=== PATIENT | female | born 1980 | race Hispanic/Latino ===

== ENCOUNTER 2017-03-22 20:04 | Emergency (ER) | payer MEDICAID ==
[2017-03-22 20:15] VITALS: BP 152/78; PULSE 78; TEMP 98.7; O2SAT 99
[2017-03-22] MEDS ORDERED: Promethazine/Cod 6.25mg-10mg/5ml Syr UD PO STA (20:42)
[2017-03-22] MEDS ORDERED: Promethazine 6.25 MG/5 ML CUP ONE (20:49)
--- NOTE | 2017-03-22 21:01 | ED PDOC ---
HPI: CCC, URI, Sore Throat Time Seen by Provider: 03/22/17 20:19 Chief Complaint (Nursing): Shortness Of Breath Chief Complaint (Provider): cough History Per: Patient History/Exam Limitations: no limitations Onset/Duration Of Symptoms: Days (4), Gradual, Persistent Current Symptoms Are (Timing): Still Present Location Of Pain: None Associated Symptoms: Cough, Sputum, Other (loss of voice). denies: Fever, Chills, Sore Throat, Sinus Drainage, Nasal Congestion Past Medical History Reviewed: Historical Data, Nursing Documentation, Vital Signs Vital Signs: Last Vital Signs Temp 98.7 F 03/22/17 20:07 Pulse 78 03/22/17 20:07 Resp 8 L 03/22/17 21:17 BP 152/78 H 03/22/17 20:07 Pulse Ox 99 03/22/17 21:06 - Medical History PMH: Asthma, Pulmonary Embolism (04/10) Denies: Arthritis, Fractures, HIV, Osteoporosis, Chronic Kidney Disease, Rheumatoid Arthritis - Surgical History Surgical History: No Surg Hx - Family History Family History: States: CAD, Diabetes - Social History Current smoker - smoking cessation education provided: No - Home Medications Home Medications: Ambulatory Orders Medication Instructions Recorded Albuterol HFA [Ventolin HFA 90 2 puff IH BID PRN 04/22/14 mcg/actuation (8 g)] Salmeterol Xinafoate/Fluticaso 2 puff IH Q12 #0 inhaler 04/28/14 [Advair Hfa 115/21] Sulfamethoxazole/Trimethopri 1 tab PO BID #14 tab 04/28/14 [Bactrim Ds 800 mg-160 mg] Warfarin Sodium [Coumadin] 5 mg PO HS #3 tab 04/28/14 predniSONE [predniSONE Tab] 40 mg PO DAILY #5 tab 04/28/14 Codeine Phosphate/Promethazi 5 ml PO Q6 PRN #125 ml 10/04/14 [Promethazine with Codeine 10 mg/5 ml-6.25 mg/] Moxifloxacin Hydrochloride [Avelox] 400 mg PO DAILY #5 tab 10/04/14 Albuterol Sulfate [Albuterol Hfa] 0.09 mg IH Q4 PRN #1 ml 08/31/15 Albuterol Sulfate [Albuterol 3 ml IH Q4 PRN #25 robert 08/31/15 Sulfate 2.5mg/3 ml 0.083%] Prednisone 50 mg PO DAILY #4 tab 08/31/15 Albuterol HFA [Ventolin HFA 90 2 puff INH PRN PRN 06/04/16 mcg/actuation (8 g)] Aspirin [Ecotrin] 81 mg PO DAILY 06/04/16 Loratadine [Claritin] 10 mg PO DAILY 06/04/16 Montelukast Sodium [Singulair] 10 mg PO HS 06/04/16 Salmeterol Xinafoate/Fluticaso 2 puff INH BID 06/04/16 [Advair Hfa 230-21] Theophylline [Gautam-Dur] 200 mg PO DAILY 06/04/16 methylPREDNISolone [Medrol] 4 mg PO TID 06/04/16 predniSONE [predniSONE Tab] 20 mg PO BID #8 tab 06/04/16 Prednisone 50 mg PO DAILY #4 tablet 03/22/17 Promethazine HCl/Codeine 10 ml PO Q6 PRN #120 ml 03/22/17 [Prometh-Codein 6.25-10 mg/5 ml] levoFLOXacin [Levaquin] 750 mg PO DAILY #5 tab 03/22/17 - Allergies Allergies/Adverse Reactions: Allergies Allergy/AdvReac Type Severity Reaction Status Date / Time azithromycin [From Zithromax] Allergy RASH Verified 06/04/16 18:27 clindamycin Allergy RASH Verified 06/04/16 18:27 Penicillins Allergy RASH Verified 06/04/16 18:27 Review of Systems ROS Statement: Except As Marked, All Systems Reviewed And Found Negative (and as per HPI) Constitutional: Negative for: Fever, Chills ENT: Positive for: Other (loss of voice). Negative for: Nose Discharge, Throat Pain Cardiovascular: Negative for: Light Headedness Respiratory: Positive for: Cough, Shortness of Breath, Pleuritic Pain, Sputum, Wheezing (but resolved with albuterol) Physical Exam - Reviewed Nursing Documentation Reviewed: Yes Vital Signs Reviewed: Yes - Physical Exam Appears: Positive for: Non-toxic, In Acute Distress (coughing episodes) Head Exam: Positive for: ATRAUMATIC, NORMOCEPHALIC Skin: Positive for: Warm, Dry Eye Exam: Positive for: EOMI, PERRL ENT: Positive for: Other (poor voice projection). Negative for: Pharyngeal Erythema, Tonsillar Exudate, Tonsillar Swelling Neck: Positive for: Painless ROM, Supple Cardiovascular/Chest: Positive for: Regular Rate, Rhythm, Chest Non Tender. Negative for: Edema, Murmur Respiratory: Positive for: Normal Breath Sounds. Negative for: Accessory Muscle Use, Rales, Rhonchi, Wheezing, Respiratory Distress Gastrointestinal/Abdominal: Positive for: Soft. Negative for: Tenderness Back: Positive for: Normal Inspection. Negative for: Decreased ROM Extremity: Positive for: Normal ROM. Negative for: Pedal Edema, Calf Tenderness Lymphatic: Negative for: Adenopathy Neurologic/Psych: Positive for: Alert. Negative for: Motor/Sensory Deficits - Laboratory Results Result Diagrams: 03/22/17 21:14 03/22/17 21:14 Interpretation Of Abn Labs: Leukocytosis, likely from recent infection. No emergently significant lab abnormalities. - ECG ECG: Positive for: Interpreted By Wy ECG Rhythm: Positive for: Normal QRS, Normal ST Segment, Sinus Rhythm O2 Sat by Pulse Oximetry: 99 Pulse Ox Interpretation: Normal - Radiology X-Ray: Interpreted by Wy X-Ray Interpretation: No Acute Disease - Progress Re-evaluation Time: 22:17 Condition: Improved (Pt will be given rx for steroid, levaquin (pt not taking coumadin so no interaction concerning) and promethazine w codeine.) Disposition - Clinical Impression Clinical Impression: Laryngitis Counseled Patient/Family Regarding: Studies Performed, Diagnosis, Need For Followup, Rx Given - Disposition Referrals: Lavell Killian MD [Family Provider] - 03/24/17 [facility] [place] [Outside] Disposition: Routine/Home Disposition Time: 21:02 Condition: STABLE Prescriptions: levoFLOXacin [Levaquin] 750 mg PO DAILY #5 tab Prednisone 50 mg PO DAILY #4 tablet Promethazine HCl/Codeine [Prometh-Codein 6.25-10 mg/5 ml] 10 ml PO Q6 PRN #120 ml PRN Reason: SEVERE COUGH ONLY Instructions: Asthma (ED), Laryngitis (ED) Forms: [employer] (Ugandan), [facility] ED School/Work Excuse
[2017-03-22 21:18] LABS: BASO # 0.1 K/uL (0.0-0.2); BASO % 0.7 % (0.0-2.0); EOS # 0.1 K/uL (0.0-0.7); EOS % 1.1 % (0.0-4.0); HEMATOCRIT 35.8 % (34.0-47.0); LYMPH # 2.5 K/uL (1.0-4.3); LYMPH % 20.6 % (20.0-40.0); MEAN CELL VOLUME 89.6 fl (81.0-99.0); MEAN CORPUSCULAR HGB CONC 33.5 g/dL (33.0-37.0); MEAN PLATELET VOLUME 8.8 fl (7.2-11.7); MONO # 0.5 K/uL (0.0-0.8); NEUT # 9.1 K/uL (1.8-7.0); NEUT % 73.6 % (50.0-75.0); RED CELL DISTRIBUTION WIDTH 13.9 % (11.5-14.5); WHITE BLOOD COUNT 12.3 K/uL (4.8-10.8)
[2017-03-22 21:21] VITALS: RESP 8
[2017-03-22 21:28] LABS: ALB/GLOB RATIO 1.3 (1.0-2.1); ALKALINE PHOSPHATASE 81 U/L (38-126); ALT/SGPT 36 U/L (9-52); AST/SGOT 17 U/L (14-36); BILIRUBIN,TOTAL 0.6 mg/dl (0.2-1.3); BLOOD UREA NITROGEN 14 mg/dl (7-17); CALCIUM 9.4 mg/dL (8.4-10.2); CARBON DIOXIDE 23 mmol/L (22-30); CHLORIDE 106 mmol/L (98-107); GFR AFRICAN-AMERICAN > 60; GLUCOSE,RANDOM 166 mg/dL (65-105); POTASSIUM 3.7 MMOL/L (3.6-5.0); SODIUM 142 mmol/l (132-148); TOTAL PROTEIN 7.8 G/DL (6.3-8.2)
[2017-03-22 21:33] LABS: PARTIAL THROMBOPLASTIN TIME 28.2 Seconds (25.6-37.1)
--- NOTE | 2017-03-23 09:48 | RAD ---
HISTORY: cough sob COMPARISON: Chest x-ray performed 08/31/15 TECHNIQUE: Chest PA and lateral FINDINGS: Examination limited by habitus. LUNGS: No focal consolidation. Please note that chest x-ray has limited sensitivity for the detection of pulmonary masses. PLEURA: No significant pleural effusion identified. No definite pneumothorax . CARDIOVASCULAR: The cardiomediastinal silhouette appears within normal limits of size. OSSEOUS STRUCTURES: No acute osseous abnormality identified. VISUALIZED UPPER ABDOMEN: Unremarkable. OTHER FINDINGS: None. IMPRESSION: No focal consolidation, significant pleural effusion, or definite pneumothorax identified.
--- NOTE | 2017-03-23 10:22 | CARD ---
APPROVED REPORT EKG Measurement Heart [id number] <Conclusion> Normal sinus rhythm Normal ECG
== END 2017-03-22 22:45 | disposition home or self-care (01) ==
LOC: H.ER 20:04
DX: J45.909 Unspecified asthma, uncomplicated (principal); J04.0 Acute laryngitis; Z79.01 Long term (current) use of anticoagulants; Z79.82 Long term (current) use of aspirin; Z86.711 Personal history of pulmonary embolism; Z88.0 Allergy status to penicillin

== ENCOUNTER 2017-07-25 19:00 | Emergency (ER) | payer MEDICAID ==
[2017-07-25 19:06] VITALS: BP 138/86; PULSE 97; RESP 18; TEMP 98; O2SAT 98
--- NOTE | 2017-07-25 20:54 | ED PDOC ---
HPI: Back Time Seen by Provider: 07/25/17 20:14 Chief Complaint (Nursing): Back Pain Chief Complaint (Provider): sore thoart and ear pain History Per: Patient History/Exam Limitations: no limitations Additional Complaint(s): 37yo F in ED for eval of sore thoart b/l and right sided lymph node swelling/ pain without fever, but with difficulty swallowing. denies change in voice, drooling or swelling to tongue. Past Medical History Reviewed: Historical Data, Nursing Documentation, Vital Signs Vital Signs: Last Vital Signs Temp 98 F 07/25/17 19:03 Pulse 97 H 07/25/17 19:03 Resp 18 07/25/17 19:03 BP 138/86 07/25/17 19:03 Pulse Ox 98 07/25/17 19:03 - Medical History PMH: Asthma, Pulmonary Embolism (04/10) Denies: Arthritis, Fractures, HIV, Osteoporosis, Chronic Kidney Disease, Rheumatoid Arthritis - Family History Family History: States: CAD, Diabetes - Home Medications Home Medications: Ambulatory Orders Medication Instructions Recorded Albuterol HFA [Ventolin HFA 90 2 puff INH PRN PRN 06/04/16 mcg/actuation (8 g)] Aspirin [Ecotrin] 81 mg PO DAILY 06/04/16 Montelukast Sodium [Singulair] 10 mg PO HS 06/04/16 Sulfamethoxazole/Trimethoprim 1 tab PO BID #14 tab 07/25/17 [Bactrim DS 800 mg-160 mg] - Allergies Allergies/Adverse Reactions: Allergies Allergy/AdvReac Type Severity Reaction Status Date / Time azithromycin [From Zithromax] Allergy RASH Verified 07/25/17 20:42 clindamycin Allergy RASH Verified 07/25/17 20:42 Penicillins Allergy RASH Verified 07/25/17 20:42 Review of Systems ROS Statement: Except As Marked, All Systems Reviewed And Found Negative Constitutional: Negative for: Fever, Chills ENT: Positive for: Throat Pain, Throat Swelling Physical Exam - Reviewed Nursing Documentation Reviewed: Yes Vital Signs Reviewed: Yes - Physical Exam Appears: Positive for: Non-toxic, No Acute Distress, Uncomfortable Head Exam: Positive for: ATRAUMATIC, NORMAL INSPECTION, NORMOCEPHALIC Skin: Positive for: Normal Color, Warm, DRY Eye Exam: Positive for: EOMI, Normal appearance, PERRL ENT: Positive for: TM Is/Are (NAD), Pharyngeal Erythema, Tonsillar Exudate, Tonsillar Swelling. Negative for: Sinus Pain/Drainage, Nasal Congestion Neck: Positive for: Normal, Painless ROM Cardiovascular/Chest: Positive for: Regular Rate, Rhythm Respiratory: Positive for: CNT, Normal Breath Sounds Lymphatic: Positive for: Adenopathy Neurologic/Psych: Positive for: Alert, Oriented - ECG O2 Sat by Pulse Oximetry: 98 - Progress ED Course And Treament: clinically: pt shows strep-will treat. pt opts to not have testing done in ER at [facility]. 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 pt understands and agrees. Disposition - Clinical Impression Clinical Impression: Strep pharyngitis - Patient ED Disposition Is Patient to be Admitted: No Counseled Patient/Family Regarding: Diagnosis, Need For Followup, Rx Given - Disposition Disposition: Routine/Home Disposition Time: 21:00 Condition: STABLE Prescriptions: Sulfamethoxazole/Trimethoprim [Bactrim DS 800 mg-160 mg] 1 tab PO BID #14 tab Instructions: Strep Throat (ED) Forms: [facility] ED School/Work Excuse
== END 2017-07-25 21:10 | disposition home or self-care (01) ==
LOC: H.ER 19:00
DX: J02.0 Streptococcal pharyngitis (principal); J45.909 Unspecified asthma, uncomplicated; R13.10 Dysphagia, unspecified; Z79.82 Long term (current) use of aspirin; Z86.711 Personal history of pulmonary embolism; Z88.0 Allergy status to penicillin

== ENCOUNTER 2018-07-02 13:25 | Emergency (ER) | payer MEDICAID ==
[2018-07-02 13:34] VITALS: RESP 16
[2018-07-02] MEDS ORDERED: Albuterol 0.083% Inhal Sol (2.5 mg/3 mL) UD INH ONE (13:51)
--- NOTE | 2018-07-02 13:51 | ED PDOC ---
HPI: SOB/CHF/COPD Additional Complaint(s): Pt seen and examined at bedside with attending. 38F PMH asthma/hx PE/DM p/w worsening chest tightness since having nasal congestion and rhinorrhea. She denies any bodyaches, fevers, chills, N/V, diarrhea, or urinary symptoms. She reports increasing her ventolin to 4-5x/day now with using nebulizer in the morning and evening. She has a food service specialist managing her asthma. She denies any recent travel or lower extremity edema <Mary Humphrey - Last Filed: 07/02/18 16:43> <Paco Bucio III - Last Filed: 07/02/18 16:54> Chief Complaint (Nursing): Shortness Of Breath Supervising Attending Note - Attestation: I have personally seen and examined this patient.: Yes I have fully participated in the care of the patient.: Yes I have reviewed all pertinent clinical information, including history, physical exam and plan: Yes - Notes: Notes:: seen and examined w resident, agree w findings improved over course of ED stay. Has hx PE but states this feels like her asthma which she gets seasonally. No tachycardia or hypoxia. DC w prednisone /albuterol, start advair when feeling better <Paco Bucio III - Last Filed: 07/02/18 16:54> Past Medical History Vital Signs: Last Vital Signs Temp 36.8 C 07/02/18 13:30 Pulse 88 07/02/18 13:30 Resp 16 07/02/18 13:30 BP 111/72 07/02/18 13:30 Pulse Ox 97 07/02/18 13:30 - Medical History PMH: Asthma, Pulmonary Embolism (04/10) Denies: Arthritis, Fractures, HIV, Osteoporosis, Chronic Kidney Disease, Rheumatoid Arthritis - Family History Family History: States: CAD, Diabetes <Mary Humphrey - Last Filed: 07/02/18 16:43> Vital Signs: Last Vital Signs Temp 98.3 F 07/02/18 13:30 Pulse 88 07/02/18 13:30 Resp 16 07/02/18 14:26 BP 111/72 07/02/18 13:30 Pulse Ox 97 07/02/18 16:45 <Paco Bucio III - Last Filed: 07/02/18 16:54> - Home Medications Home Medications: Ambulatory Orders Medication Instructions Recorded Albuterol HFA [Ventolin HFA 90 2 puff INH PRN PRN 06/04/16 mcg/actuation (8 g)] Aspirin [Ecotrin] 81 mg PO DAILY 06/04/16 Montelukast Sodium [Singulair] 10 mg PO HS 06/04/16 Sulfamethoxazole/Trimethoprim 1 tab PO BID #14 tab 07/25/17 [Bactrim DS 800 mg-160 mg] Fluticasone/Salmeterol 250/50 1 puff IH Q12 #1 dev 07/02/18 [Advair Diskus] Prednisone 50 mg PO DAILY #4 tab 07/02/18 - Allergies Allergies/Adverse Reactions: Allergies Allergy/AdvReac Type Severity Reaction Status Date / Time azithromycin [From Zithromax] Allergy RASH Verified 07/02/18 13:30 clindamycin Allergy RASH Verified 07/02/18 13:30 Penicillins Allergy RASH Verified 07/02/18 13:30 Review of Systems Respiratory: Positive for: Shortness of Breath, SOB with Exertion <Mary Humphrey - Last Filed: 07/02/18 16:43> Physical Exam - Reviewed Vital Signs Reviewed: Yes - Physical Exam Appears: Positive for: Non-toxic, No Acute Distress Head Exam: Positive for: ATRAUMATIC Skin: Positive for: Normal Color, Warm, Dry Eye Exam: Positive for: Normal appearance, EOMI ENT: Positive for: Normal ENT Inspection Neck: Positive for: Supple Cardiovascular/Chest: Positive for: Regular Rate, Rhythm Respiratory: Positive for: Wheezing (mild). Negative for: Normal Breath Sounds (not good air movement), Accessory Muscle Use, Crackles, Rales, Rhonchi, Respiratory Distress Gastrointestinal/Abdominal: Positive for: Bowel Sounds, Soft. Negative for: Tenderness Extremity: Positive for: Normal ROM. Negative for: Pedal Edema, Calf Tenderness, Swelling Neurologic/Psych: Positive for: Alert, Oriented <Mary Humphrey - Last Filed: 07/02/18 16:43> - ECG O2 Sat by Pulse Oximetry: 97 <Mary Humphrey - Last Filed: 07/02/18 16:43> Medical Decision Making Medical Decision Making: Asthma exacerbation - Albuterol - Solu medrol - U preg - CXR 1515 - Pt not improving despite Peak flow at 300 (which pt reports as her baseline), CXR no abnormalities - DuoNebs - MgSO4 2g - Reeval 1615 - Clinically improved <Mary Hupmhrey - Last Filed: 07/02/18 16:43> Disposition - Patient ED Disposition Is Patient to be Admitted: No Counseled Patient/Family Regarding: Diagnosis, Need For Followup, Rx Given - Disposition Disposition: Routine/Home Disposition Time: 16:23 <Mary Humphrey - Last Filed: 07/02/18 16:43> <Paco Bucio III - Last Filed: 07/02/18 16:54> - Clinical Impression Clinical Impression: Asthma exacerbation, mild - Disposition Referrals: Lavell Killian MD [Medical Doctor] - Condition: IMPROVED Additional Instructions: - Follow up with PMD and Ecology Teacher in 2-3 days - Room humidifier - continue with Ventolin as needed - Start Advair - Return to ER if worsening respiratory status Prescriptions: Fluticasone/Salmeterol 250/50 [Advair Diskus] 1 puff IH Q12 #1 dev Prednisone 50 mg PO DAILY #4 tab Instructions: Asthma in Adults Forms: [facility] (Estonian)
[2018-07-02] MEDS ORDERED: methylPREDNISolone 125 MG in Sodium Chloride 0.9% 50 ML IVPB ONE (13:52)
[2018-07-02] MEDS ORDERED: Albuterol 0.083% Inhal Sol (2.5 mg/3 mL) UD ONE (14:10)
--- NOTE | 2018-07-02 14:55 | RAD ---
Date of service: 07/02/2018 HISTORY: SOB COMPARISON: Chest radiographs 03/22/2017. TECHNIQUE: Chest PA and lateral FINDINGS: LUNGS: No active pulmonary disease. PLEURA: No significant pleural effusion identified. No pneumothorax apparent. CARDIOVASCULAR: No aortic atherosclerotic calcification present. Normal cardiac size. No pulmonary vascular congestion. OSSEOUS STRUCTURES: No significant abnormalities. VISUALIZED UPPER ABDOMEN: Normal. OTHER FINDINGS: None. IMPRESSION: No interval acute cardiopulmonary disease appreciated.
[2018-07-02] MEDS ORDERED: Albuterol-Ipratrop 3 mg / 0.5 (3 ml) UD INH STA (15:11)
[2018-07-02] MEDS ORDERED: Magnesium Sulfate 2 gm/50 ml 2 GM/50 ML BAG IVPB ONE (15:11)
[2018-07-02] MEDS ORDERED: Albuterol-Ipratrop 3 mg / 0.5 (3 ml) UD ONE (15:24)
[2018-07-02] MEDS ORDERED: Magnesium Sulfate 2 gm/50 ml 2 GM/50 ML BAG ONE (15:25)
[2018-07-02 17:40] VITALS: BP 137/75; PULSE 85; TEMP 98.5; O2SAT 99
== END 2018-07-02 17:02 | disposition home or self-care (01) ==
LOC: H.ER 13:25
DX: J45.901 Unspecified asthma with (acute) exacerbation (principal); J44.9 Chronic obstructive pulmonary disease, unspecified; Z82.49 Family history of ischemic heart disease and other diseases of the circulatory system; Z86.711 Personal history of pulmonary embolism; Z88.0 Allergy status to penicillin; Z79.82 Long term (current) use of aspirin
CPT/HCPCS: 71046; 81025; 96374; 96375; 99283; J2930

== ENCOUNTER 2018-12-20 19:06 | Emergency (ER) | payer MEDICAID ==
[2018-12-20 19:23] VITALS: BP 121/83; PULSE 98; RESP 16; TEMP 98; O2SAT 99
--- NOTE | 2018-12-20 20:44 | ED PDOC ---
Upper Extremity Pain/Injury Time Seen by Provider: 12/20/18 19:33 Chief Complaint (Nursing): Upper Extremity Problem/Injury Chief Complaint (Provider): Right Wrist Pain, Splinter Hemorrhages History Per: Patient History/Exam Limitations: no limitations Onset/Duration Of Symptoms: Hrs (since 1100 this morning) Current Symptoms Are (Timing): Still Present Additional Complaint(s): 38 year old female presents to the ED for evaluation of right wrist pain since 1100 this morning worse with movement. She is also reporting that two weeks ago she noticed some blood clots under her finger nails which her physician SIM Dunn informed her were splinter hemorrhages. She states that he gave her scripts for blood work which [facility] could not completely fulfill, so she p resents asking if it could be completed here. Of note, patient has a history of a PE from a depo shot 3-4 years ago which she was on anticoagulants for but is not anymore. Otherwise, denies leg pain /swelling, chest pain, shortness of breath, rash, fever, recent travel, prolonged immobility, hormone use, and recent surgery. PMD: [place] Past Medical History Reviewed: Historical Data, Nursing Documentation, Vital Signs Vital Signs: Last Vital Signs Temp 98 F 12/20/18 19:19 Pulse 98 H 12/20/18 19:19 Resp 16 12/20/18 19:19 BP 121/83 12/20/18 19:19 Pulse Ox 99 12/20/18 19:19 - Medical History PMH: Asthma, Pulmonary Embolism (04/10) Denies: Arthritis, Fractures, HIV, Osteoporosis, Chronic Kidney Disease, Rheumatoid Arthritis - Surgical History Surgical History: No Surg Hx - Family History Family History: States: CAD, Diabetes - Social History Current smoker - smoking cessation education provided: No Alcohol: Social Drugs: Denies - Home Medications Home Medications: Ambulatory Orders Medication Instructions Recorded Albuterol HFA [Ventolin HFA 90 2 puff INH PRN PRN 06/04/16 mcg/actuation (8 g)] Aspirin [Ecotrin] 81 mg PO DAILY 06/04/16 Montelukast Sodium [Singulair] 10 mg PO HS 06/04/16 Sulfamethoxazole/Trimethoprim 1 tab PO BID #14 tab 07/25/17 [Bactrim DS 800 mg-160 mg] Fluticasone/Salmeterol 250/50 1 puff IH Q12 #1 dev 07/02/18 [Advair Diskus] Prednisone 50 mg PO DAILY #4 tab 07/02/18 - Allergies Allergies/Adverse Reactions: Allergies Allergy/AdvReac Type Severity Reaction Status Date / Time azithromycin [From Zithromax] Allergy RASH Verified 12/20/18 19:17 clindamycin Allergy RASH Verified 12/20/18 19:17 Penicillins Allergy RASH Verified 12/20/18 19:17 Review of Systems ROS Statement: Except As Marked, All Systems Reviewed And Found Negative Constitutional: Negative for: Fever Cardiovascular: Negative for: Chest Pain Respiratory: Negative for: Shortness of Breath Musculoskeletal: Positive for: Other (right wrist pain). Negative for: Leg Pain (or swelling) Skin: Positive for: Other (splinter hemorrhages to finger nails). Negative for: Rash Physical Exam - Reviewed Nursing Documentation Reviewed: Yes Vital Signs Reviewed: Yes - Physical Exam Comments: GENERAL APPEARANCE: Patient is awake, alert, oriented x 3, in no acute distress. Overweight, well appearing. SKIN: Warm, dry; (-) cyanosis. CHEST AND RESPIRATORY: (-) chest wall tenderness. Lungs: (-) rales, (-) rhonchi, (-) wheezes; breath sounds equal bilaterally. HEART AND CARDIOVASCULAR: (-) irregularity; (-) murmur, (-) gallop. BILATERAL UPPER EXTREMITIES: splinter hemorrhages to approx. 2-3 distal nails of each hand; good mixer operator tablets strength bilaterally, capillary refill less than 2 seconds, pulses 2+, sensation intact. Right wrist: (+) diffuse tenderness, (-) swelling, (-) ecchymosis, (+) full ROM with pain. (-) deformity. Elbow, hand and digits: (-) tenderness. BILATERAL LOWER EXTREMITIES: capillary refill less than 2 seconds, pulses 2+, se nsation intact. Negative Kelechi's sign bilaterally, (-) calf tenderness or swelling bilaterally. NEURO AND PSYCH: Mental status as above. 5/5 strength x4 extremities - Laboratory Results Result Diagrams: 12/20/18 20:44 12/20/18 20:44 - ECG O2 Sat by Pulse Oximetry: 99 (RA) Pulse Ox Interpretation: Normal Medical Decision Making Medical Decision Making: Initial Impression: right wrist pain, splinter hemorrhages Time: 2034 Initial Plan: --CMP --TSH --CBC with differential --PT / PTT --Right wrist XR --Dr. Bucio saw patient at bedside and recommends completing some of the blood work here and reevaluating Xray reviewed by me - no actue fx or dislocation discussed with pt she will be informed of any discrepancies with radiologist read labs wnl, coags wnl, pt with splinter hemorrhages for >2weeks, no other concerning signs or symptoms, stable for further outpt f/u Cock up splint applied by ed staff Discussed results, diagnosis, treatment, return precautions and f/u with pt who is understanding, in agreement and stable for dc Scribe Attestation: Documented by Anuradha Hernandez acting as a scribe for Jhon Cedeno PA-C. Provider Scribe Attestation: All medical record entries made by the Scribe were at my direction and personally dictated by me. I have reviewed the chart and agree that the record accurately reflects my personal performance of the history, physical exam, medical decision making, and the department course for this patient. I have also personally directed, reviewed, and agree with the discharge instructions and disposition. Disposition - Clinical Impression Clinical Impression: Pain in right wrist, Splinter hemorrhage of fingernail - Patient ED Disposition Is Patient to be Admitted: No Counseled Patient/Family Regarding: Studies Performed, Diagnosis, Need For Followup - Disposition Referrals: Rui Dunn APN [Nurse Practitioner] - Disposition: Routine/Home Disposition Time: 21:50 Condition: STABLE Additional Instructions: Thank you for letting us take care of you today. Return to ED for new or worsening symptoms, fever >100.4, chest pain, shortness or breath. Follow up with your doctor and get the rest of blood work done. Rest, ice and elevate your hand. Wear splint for support. Take ibuprofen as needed for pain. The emergency medical care you received today was directed at your acute symptoms. If you were prescribed any medication, please fill it and take as directed. It may take several days for your symptoms to resolve. Return to the Emergency Department if your symptoms worsen, do not improve, or if you have any other problems. Please contact your doctor in 2 days for re-evaluation and follow up / or call one of the physicians/clinics you have been referred to that are listed on the Patient Visit Information form that is included in your discharge packet. Bring any paperwork you were given at discharge with you along with any medications you are taking to your follow up visit. Our treatment cannot replace ongoing medical care by a primary care provider (PCP) outside of the emergency department. Instructions: Carpal Tunnel Syndrome (DC), Wrist Sprain (DC), Active Range of M otion Exercises, Arms and Hands, Upper Extremity Exercises Seated for the Elbow and Wrist Forms: [employer] ([place]ian), [facility] ED School/Work Excuse Print Language: TURKMEN - POA Present On Arrival: None
[2018-12-20 20:49] LABS: BASO # 0.1 K/uL (0.0-0.2); BASO % 0.5 % (0.0-2.0); EOS # 0.1 K/uL (0.0-0.7); EOS % 1.3 % (0.0-4.0); HEMOGLOBIN 13.4 g/dL (12.0-16.0); LYMPH # 2.9 K/uL (1.0-4.3); LYMPH % 26.4 % (20.0-40.0); MEAN CELL VOLUME 88.6 fl (81.0-99.0); MEAN CORPUSCULAR HEMOGLOBIN 29.8 pg (27.0-31.0); MEAN CORPUSCULAR HGB CONC 33.6 g/dL (33.0-37.0); MEAN PLATELET VOLUME 8.7 fl (7.2-11.7); MONO # 0.4 K/uL (0.0-0.8); MONO % 4.1 % (0.0-10.0); NEUT # 7.4 K/uL (1.8-7.0); NEUT % 67.7 % (50.0-75.0); RBC 4.49 Mil/uL (3.80-5.20); RED CELL DISTRIBUTION WIDTH 14.2 % (11.5-14.5)
[2018-12-20 21:09] LABS: ALB/GLOB RATIO 1.2 (1.0-2.1); ALBUMIN 4.6 g/dL (3.5-5.0); ALT/SGPT 30 U/L (9-52); AST/SGOT 20 U/L (14-36); BLOOD UREA NITROGEN 17 mg/dl (7-17); CALCIUM 9.8 mg/dL (8.4-10.2); GFR NON-AFRICAN AMERICAN > 60
[2018-12-20 21:11] LABS: INR 1.1; PROTHROMBIN TIME 12.3 Seconds (9.8-13.1)
[2018-12-20 21:13] LABS: PARTIAL THROMBOPLASTIN TIME 32.5 Seconds (25.6-37.1)
--- NOTE | 2018-12-21 08:35 | RAD ---
Date of service: 12/20/2018 PROCEDURE: Right Wrist Radiographs. HISTORY: pain COMPARISON: None. TECHNIQUE: 4 views obtained. FINDINGS: BONES: No acute fracture or destructive bony lesion identified. JOINTS: Normal. No dislocation. SOFT TISSUES: Normal. OTHER FINDINGS: None. IMPRESSION: Unremarkable right wrist radiographs.
== END 2018-12-20 21:59 | disposition home or self-care (01) ==
LOC: H.ER 19:06
DX: M25.531 Pain in right wrist (principal); L60.8 Other nail disorders; Z79.82 Long term (current) use of aspirin; Z86.711 Personal history of pulmonary embolism; Z88.0 Allergy status to penicillin; Z88.1 Allergy status to other antibiotic agents